=== PATIENT | male | born 1985 | race American Indian/Alaskan Native ===

== ENCOUNTER 2019-10-26 16:43 | Emergency (ER) | payer SELFPAY ==
--- NOTE | 2019-10-26 20:02 | Emergency Department Report ---
Blank Doc - Documentation Documentation: [id number] male that presents with right sided lower abd pain. exam: RLQ tenderness noted. This initial assessment/diagnostic orders/clinical plan/treatment(s) is/are subject to change based on patient's health status, clinical progression and re- assessment by fellow clinical providers in the ED. Further treatment and workup at subsequent clinical providers discretion. Patient/guardians urged not to elope from the ED as their condition may be serious if not clinically assessed and managed. Initial orders include: 1- Patient sent to [facility] for further evaluation and treatment 2- labs 3- UA
[2019-10-26 20:49] LABS: Basophils # (Auto) 0.1 K/mm3 (0.0-0.1); Eosinophils # (Auto) 0.2 K/mm3 (0.0-0.4); Hematocrit 48.3 % (35.5-45.6); Hemoglobin 15.8 gm/dl (11.8-15.2); Lymphocytes # (Auto) 3.3 K/mm3 (1.2-5.4); Lymphocytes % (Auto) 43.6 % (13.4-35.0); Mean Corpuscular HGB Conc 33 % (32-34); Mean Corpuscular Volume 87 fl (84-94); Monocytes # (Auto) 0.8 K/mm3 (0.0-0.8); Monocytes % (Auto) 11.1 % (0.0-7.3); Platelet Count 296 K/mm3 (140-440); Red Blood Count 5.52 M/mm3 (3.65-5.03); Red Cell Distribution Width 14.9 % (13.2-15.2)
[2019-10-26 20:59] LABS: Alanine Aminotransferase 21 units/L (7-56); Albumin 4.4 g/dL (3.9-5); BUN/Creatinine Ratio 11; Blood Urea Nitrogen 10 mg/dL (9-20); Calcium 9.4 mg/dL (8.4-10.2); Hemolysis Index 20
[2019-10-26 23:18] LABS: Bilirubin,Urine NEG (Negative); Blood,Urine NEG (Negative); Color,Urine Straw (Yellow); Mucus,Urine FEW /HPF; Protein,Urine <15 mg/dL mg/dL (Negative); Urobilinogen,Urine < 2.0 mg/dL (<2.0)
--- NOTE | 2019-10-27 03:09 | Emergency Department Report ---
ED Male HPI - General Chief complaint: Abdominal Pain Stated complaint: ABD/PELVIC PAIN Time Seen by Provider: 10/26/19 19:58 Source: patient, EMS Mode of arrival: Ambulatory Limitations: No Limitations - History of Present Illness Initial comments: 34-year-old -[place] male presents emergency department complaining of suprapubic pain sharp in nature with mild cramping worse with urination he reports having increased urinary urgency decreased urinary production and burning with urination. Reports no penile discharge no suspicion for STD reports no diarrhea no constipation. Ports no fever, chills, sweats. - Related Data Previous Rx's Medication Instructions Recorded Last Taken Type Phenazopyridine [Pyridium] 200 mg PO TID #10 tab 10/27/19 Unknown Rx Sulfamethoxazole/Trimethoprim 1 each PO BID #20 tablet 10/27/19 Unknown Rx [Bactrim DS TAB] ED Review of Systems ROS: Stated complaint: ABD/PELVIC PAIN Other details as noted in HPI Comment: All other systems reviewed and negative ED Past Medical Hx - Past Medical History Previous Medical History?: Yes Hx Hypertension: Yes Hx Asthma: Yes - Surgical History Past Surgical History?: Yes Additional Surgical History: Surgeries on left leg - Social History Smoking Status: Never Smoker Substance Use Type: None - Medications Home Medications: Home Medications Medication Instructions Recorded Confirmed Last Taken Type Phenazopyridine [Pyridium] 200 mg PO TID #10 tab 10/27/19 Unknown Rx Sulfamethoxazole/Trimethoprim 1 each PO BID #20 tablet 10/27/19 Unknown Rx [Bactrim DS TAB] ED Physical Exam - General Limitations: No Limitations General appearance: alert, in no apparent distress - Head Head exam: Present: atraumatic, normocephalic - Eye Eye exam: Present: normal appearance - ENT ENT exam: Present: mucous membranes moist - Neck Neck exam: Present: normal inspection - Respiratory Respiratory exam: Present: normal lung sounds bilaterally. Absent: respiratory distress - Cardiovascular Cardiovascular Exam: Present: regular rate, normal rhythm. Absent: systolic murmur, diastolic murmur, rubs, gallop - GI/Abdominal GI/Abdominal exam: Present: soft, normal bowel sounds - Rectal Rectal exam: Present: deferred - Extremities Exam Extremities exam: Present: normal inspection - Back Exam Back exam: Present: normal inspection - Neurological Exam Neurological exam: Present: alert, oriented X3 - Psychiatric Psychiatric exam: Present: normal affect, normal mood - Skin Skin exam: Present: warm, dry, intact, normal color. Absent: rash ED Course Vital Signs 10/26/19 10/27/19 17:49 01:52 Temperature 97.9 F 98.1 F Pulse Rate 96 H 88 Respiratory 18 18 Rate Blood Pressure 146/81 147/94 O2 Sat by Pulse 98 98 Oximetry ED Medical Decision Making - Lab Data Result diagrams: 10/26/19 20:07 10/26/19 20:07 - Medical Decision Making This patient presents with abdominal pain of unclear etiology most likely urinary tract infection. Their evaluation has not identified a emergent etiology for the abdominal pain. Specifically, given the very benign exam, normal laboratory studies, and lack of significant risk factors, I have a very low suspicion for appendicitis, ischemic bowel, bowel perforation, or any other life threatening disease. I have discussed with the patient the level of uncertainty with undifferentiated abdominal pain and clearly explained the need to follow-up as noted on the discharge instructions, or return to the Emergency Department immediately if the pain worsens, develops fever, persistent and uncontrollable vomiting, or for any new symptoms or concerns. I discussed with the patient that this presentation today for abdominal pain could represent a significant risk for an acute abdominal process. Although the tests in the ED were essentially n ormal, there is still a possibility of a process such as appendicitis, diverticulitis, cholecystitis, ulcer, early bowel obstruction, mesenteric ischemia, kidney stone, or even kidney infection which could subsequently cause disability or . The patient understands that they must return within 24 hours for a recheck or see their physician within 24 hours for re-exam due to the possibility of significant surgical or medical process. Critical care attestation.: If time is entered above; I have spent that time in minutes in the direct care of this critically ill patient, excluding procedure time. ED Disposition Clinical Impression: UTI (urinary tract infection) Disposition: -01 TO HOME OR SELFCARE Is pt being admited?: No Does the pt Need Aspirin: No Condition: Stable Instructions: Phenazopyridine (By mouth), Urinary Tract Infection in Men (ED), Dysuria (ED) Prescriptions: Sulfamethoxazole/Trimethoprim [Bactrim DS TAB] 1 each PO BID #20 tablet Phenazopyridine [Pyridium] 200 mg PO TID #10 tab Referrals: PRIMARY CARE, [Primary Care Provider] - 3-5 Days [facility] [Provider Group] - 3-5 Days
[2019-10-27 06:32] VITALS: BP 132/65
== END 2019-10-27 03:35 | disposition home or self-care (01) ==
LOC: ED 16:43
DX: N39.0 Urinary tract infection, site not specified (principal); I10 Essential (primary) hypertension; J45.909 Unspecified asthma, uncomplicated; Z98.890 Other specified postprocedural states; Z79.899 Other long term (current) drug therapy
CPT/HCPCS: 36415; 80053; 81001; 83690; 85025; 87086

== ENCOUNTER 2021-03-03 18:34 | Emergency (ER) | payer SELFPAY ==
[2021-03-03] MEDS ORDERED: HYDROcodone/ACETAMINOPHEN 5-325 MG TAB PO ONE (19:37)
--- NOTE | 2021-03-03 19:40 | Emergency Department Report ---
ED General Adult HPI - General Chief complaint: Pain General Stated complaint: HIP PAIN Time Seen by Provider: 03/03/21 18:47 Source: patient Mode of arrival: Ambulatory Limitations: No Limitations - History of Present Illness Initial comments: Patient is a 35-year-old male presents emergency room with complaints of right leg swelling that exacerbated approximately 2 to 3 weeks ago. He has associated right hip pain and lower back pain. He denies any fall or injury. He states he has a history of a right hip replacement when he was 12 years old. 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 He states he has seen orthopedic doctors and went to physical therapy. He denies any numbness or weakness. He is able to ambulate. He denies any redness, rashes, increased warmth, fever, vomiting. No allergies to medications. - Related Data Previous Rx's Medication Instructions Recorded Last Taken Type Phenazopyridine [Pyridium] 200 mg PO TID #10 tab 10/27/19 Unknown Rx Sulfamethoxazole/Trimethoprim 1 each PO BID #20 tablet 10/27/19 Unknown Rx [Bactrim DS TAB] Gabapentin 100 mg PO Q8HR #21 capsule 03/03/21 Unknown Rx Meloxicam [Mobic] 7.5 mg PO QDAY PRN #14 tablet 03/03/21 Unknown Rx methOCARBAMOL [Robaxin TAB] 500 mg PO BID PRN #14 tab 03/03/21 Unknown Rx Allergies Allergy/AdvReac Type Severity Reaction Status Date / Time No Known Allergies Allergy Unverified 10/27/19 03:32 ED Review of Systems ROS: Stated complaint: HIP PAIN Other details as noted in HPI Comment: All other systems reviewed and negative ED Past Medical Hx - Past Medical History Hx Hypertension: Yes Hx Asthma: Yes - Surgical History Additional Surgical History: Surgeries on left leg - Social History Smoking Status: Never Smoker Substance Use Type: None - Medications Home Medications: Home Medications Medication Instructions Recorded Confirmed Last Taken Type Phenazopyridine [Pyridium] 200 mg PO TID #10 tab 10/27/19 Unknown Rx Sulfamethoxazole/Trimethoprim 1 each PO BID #20 tablet 10/27/19 Unknown Rx [Bactrim DS TAB] Gabapentin 100 mg PO Q8HR #21 capsule 03/03/21 Unknown Rx Meloxicam [Mobic] 7.5 mg PO QDAY PRN #14 tablet 03/03/21 Unknown Rx methOCARBAMOL [Robaxin TAB] 500 mg PO BID PRN #14 tab 03/03/21 Unknown Rx ED Physical Exam - General Limitations: No Limitations General appearance: alert, in no apparent distress - Head Head exam: Present: atraumatic, normocephalic - Eye Eye exam: Present: normal appearance - ENT ENT exam: Present: mucous membranes moist - Neck Neck exam: Present: normal inspection, full ROM. Absent: tenderness, menin gismus - Respiratory Respiratory exam: Present: normal lung sounds bilaterally. Absent: respiratory distress, wheezes, rales, rhonchi, stridor, chest wall tenderness, accessory muscle use, decreased breath sounds, prolonged expiratory - Cardiovascular Cardiovascular Exam: Present: normal rhythm, tachycardia - Extremities Exam Extremities exam: Present: other (non pitting edema to the right lower extremity, FROM of the RLE, pain with full flexion of the hip, no skin changes, neurovascularly intact with strong distal pulses) - Back Exam Back exam: Present: normal inspection, full ROM, paraspinal tenderness (lumbar), vertebral tenderness (lumbar) - Neurological Exam Neurological exam: Present: alert, oriented X3, CN II-XII intact, normal gait. Absent: motor sensory deficit - Psychiatric Psychiatric exam: Present: normal affect, normal mood - Skin Skin exam: Present: warm, dry, intact ED Course Vital Signs 03/03/21 03/03/21 03/03/21 18:41 20:22 20:39 Temperature 98.7 F Pulse Rate 125 H 96 H Respiratory 20 18 14 Rate Blood Pressure 154/75 Blood Pressure 153/87 [Left] O2 Sat by Pulse 100 Oximetry ED Medical Decision Making - Lab Data Result diagrams: 03/03/21 19:30 03/03/21 19:30 Lab Results 03/03/21 03/03/21 Range/Units 19:30 19:30 WBC 6.0 (4.5-11.0) K/mm3 RBC 5.79 H (3.65-5.03) M/mm3 Hgb 15.8 H (11.8-15.2) gm/dl Hct 49.9 H (35.5-45.6) % MCV 86 (84-94) fl MCH 27 L (28-32) pg MCHC 32 (32-34) % RDW 14.9 (13.2-15.2) % Plt Count 321 (140-440) K/mm3 Lymph % (Auto) 9.8 L (13.4-35.0) % [place] % (Auto) 1.4 (0.0-7.3) % Eos % (Auto) 0.1 (0.0-4.3) % Baso % (Auto) 0.4 (0.0-1.8) % Lymph # (Auto) 0.6 L (1.2-5.4) K/mm3 [place] # (Auto) 0.1 (0.0-0.8) K/mm3 Eos # (Auto) 0.0 (0.0-0.4) K/mm3 Baso # (Auto) 0.0 (0.0-0.1) K/mm3 Seg Neutrophils % 88.3 H (40.0-70.0) % Seg Neutrophils # 5.3 (1.8-7.7) K/mm3 Sodium 145 (137-145) mmol/L Potassium 4.2 (3.6-5.0) mmol/L Chloride 108.8 H (98-107) mmol/L Carbon Dioxide 21 L (22-30) mmol/L Anion Gap 19 mmol/L BUN 16 (9-20) mg/dL Creatinine 1.0 (0.8-1.3) mg/dL Estimated GFR > 60 ml/min BUN/Creatinine Ratio 16 % Glucose 141 H (75-100) mg/dL Calcium 10.3 H (8.4-10.2) mg/dL Total Bilirubin 0.20 (0.1-1.2) mg/dL AST 19 (5-40) units/L ALT 24 (7-56) units/L Alkaline Phosphatase 90 (35-129) units/L NT-Pro-B Natriuret Pep 22.11 (0-450) pg/mL Total Protein 7.3 (6.3-8.2) g/dL Albumin 4.6 (3.9-5) g/dL Albumin/Globulin Ratio 1.7 % - Radiology Data Radiology results: report reviewed Ordering Physician: ROXANN HILTON Date of Service: 03/03/21 Procedure(s): XR spine lumbosacral 2-3V Accession Number(s): [id number] cc: ROXANN HILTON Fluoro Time In Minutes: LUMBAR SPINE 2 VIEWS INDICATION / CLINICAL INFORMATION: low back pain. COMPARISON: None available. FINDINGS: VERTEBRAE: No acute fracture. No significant malalignment. DISC SPACES / FACET JOINTS:No significant abnormality. PARASPINAL SOFT TISSUES:No significant abnormality. ADDITIONAL FINDINGS: None. Signer Name: Erickson Meléndez MD Signed: 03/03/2021 7:47 PM Workstation Name: [id number] Transcribed By: SB Dictated By: ERICKSON MELÉNDEZ MD Electronically Authenticated By: ERICKSON MELÉNDEZ MD Signed Date/Time: 03/03/211946 DD/ 46 TD/TT: Ordering Physician: ROXANN HILTON Date of Service: 03/03/21 Procedure(s): XR hip 2-3V RT Accession Number(s): [id number] cc: ROXANN HILTON Fluoro Time In Minutes: RIGHT HIP 3 VIEW(S) INDICATION / CLINICAL INFORMATION: right hip pain COMPARISON: None available. FINDINGS: BONES / JOINT(S): Remote, healed fracture status post surgical fixation of the right hip. Mild right hip osteoarthrosis. No acute osseous abnormality. No evidence of hardware failure. Left hip is normal. SOFT TISSUES: No significant abnormality. ADDITIONAL FINDINGS: None. Signer Name: Erickson Meléndez MD Signed: 03/03/2021 7:47 PM Workstation Name: [id number] Transcribed By: Dictated By: ERICKSON MELÉNDEZ MD Electronically Authenticated By: ERICKSON MELÉNDEZ MD Signed Date/Time: 03/03/211946 DD/ 45 TD/TT: Ordering Physician: ROXANN HILTON Date of Service: 03/03/21 Procedure(s): VL venous duplex LE RT Accession Number(s): [id number] cc: ROXANN HILTON DUPLEX DOPPLER LOWER EXTREMITY VEINS, RIGHT INDICATION / CLINICAL INFORMATION: right leg swelling and pain. TECHNIQUE: Duplex doppler imaging was performed through the veins of the right lower extremity using venous compression and other maneuvers. COMPARISON: None available. FINDINGS: RIGHT COMMON FEMORAL VEIN: Negative. RIGHT FEMORAL VEIN: Negative. RIGHT POPLITEAL VEIN: Negative. RIGHT CALF VEINS: Negative. ADDITIONAL FINDINGS: None. IMPRESSION: 1. No sonographic evidence for DVT in the right lower extremity. Signer Name: Erickson Meléndez MD Signed: 03/03/2021 8:22 PM Workstation Name: [id number] Transcribed By: ELISABETH Dictated By: ERICKSON MELÉNDEZ MD Electronically Authenticated By: ERICKSON MELÉNDEZ MD Signed Date/Time: 03/03/212021 DD/ 20 TD/TT: - Medical Decision Making Patient is a 35-year-old male presents emergency room with complaints of right leg swelling that exacerbated approximately 2 to 3 weeks ago. He has associated right hip pain and lower back pain. He denies any fall or injury. He states he has a history of a right hip replacement when he was 12 years old. 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 He states he has seen orthopedic doctors and went to physical therapy. He denies any numbness or weakness. He is able to ambulate. He denies any redness, rashes, increased warmth, fever, vomiting. No allergies to medications. Initial vitals with tachycardia which improved upon repeat. On exam:non pitting edema to the right lower extremity, FROM of the RLE, pain with full flexion of the hip, no skin changes, neurovascularly intact with strong distal pulses, midline lumbar and paraspinal lumbar tenderness palpation, no step-offs, no deformities, no focal neuro deficits, patient is ambulatory. X-ray lumbar spine VERTEBRAE: No acute fracture. No significant malalignment. DISC SPACES / FACET JOINTS:No significant abnormality. PARASPINAL SOFT TISSUES:No significant abnormality. ADDITIONAL FINDINGS: None. X-ray right hip BONES / JOINT(S): Remote, healed fracture status post surgical fixation of the right hip. Mild right hip osteoa rthrosis. No acute osseous abnormality. No evidence of hardware failure. Left hip is normal. SOFT TISSUES: No significant abnormality. ADDITIONAL FINDINGS: None. Doppler ultrasound right lower extremity 1. No sonographic evidence for DVT in the right lower extremity. Labs are stable. Patient has no signs of infection, cellulitis, or septic joint. He has 2+ distal pulses, no signs of acute arterial occlusion. Patient will be referred to neurosurgery and vascular surgery. Patient states that he already sees an orthopedic at [facility]. Patient given prescription for medications. Advised patient Please take medication as prescribed. Follow-up with your primary care doctor. Follow-up with a vascular doctor. Follow-up with a neurosurgeon. Eat a low-sodium diet. Elevate your legs. Please wear compression stockings when you're on your feet. Return to emergency room for any new or symptoms. Critical care attestation.: If time is entered above; I have spent that time in minutes in the direct care of this critically ill patient, excluding procedure time. ED Disposition Clinical Impression: Right hip pain, Arthritis of right hip, Right leg swelling Low back pain Qualifiers: Chronicity: acute Back pain laterality: bilateral Sciatica presence: without sciatica Qualified Code(s): M54.50 - Low back pain, unspecified Disposition: HOME / SELF CARE / HOMELESS Is pt being admited?: No Does the pt Need Aspirin: No Condition: Stable Instructions: Acute Back Pain, Adult, Arthritis Additional Instructions: Please take medication as prescribed. Follow-up with your primary care doctor. Follow-up with a vascular doctor. Follow-up with a neurosurgeon. Eat a low- sodium diet. Elevate your legs. Please wear compression stockings when you're on your feet. Return to emergency room for any new or symptoms. Prescriptions: Gabapentin 100 mg PO Q8HR #21 capsule Meloxicam [Mobic] 7.5 mg PO QDAY PRN #14 tablet PRN Reason: pain methOCARBAMOL [Robaxin TAB] 500 mg PO BID PRN #14 tab PRN Reason: muscle spasm/pain Referrals: ROSEMARIE MASON MD [Primary Care Provider] - 3-[address] [facility] [Provider Group] - 3-5 Days RANDY AMBRIZ II, MD [Staff Physician] - 3-5 Days Time of Disposition: 20:32 Print Language: INDONESIAN
[2021-03-03 19:49] LABS: Basophils % (Auto) 0.4 % (0.0-1.8); Eosinophils % (Auto) 0.1 % (0.0-4.3); Hematocrit 49.9 % (35.5-45.6); Hemoglobin 15.8 gm/dl (11.8-15.2); Lymphocytes # (Auto) 0.6 K/mm3 (1.2-5.4); Lymphocytes % (Auto) 9.8 % (13.4-35.0); Mean Corpuscular HGB Conc 32 % (32-34); Mean Corpuscular Volume 86 fl (84-94); Monocytes # (Auto) 0.1 K/mm3 (0.0-0.8); Monocytes % (Auto) 1.4 % (0.0-7.3); Platelet Count 321 K/mm3 (140-440); Red Blood Count 5.79 M/mm3 (3.65-5.03); Red Cell Distribution Width 14.9 % (13.2-15.2)
--- NOTE | 2021-03-03 19:52 | XRay Report ---
RIGHT HIP 3 VIEW(S) INDICATION / CLINICAL INFORMATION: right hip pain COMPARISON: None available. FINDINGS: BONES / JOINT(S): Remote, healed fracture status post surgical fixation of the right hip. Mild right hip osteoarthrosis. No acute osseous abnormality. No evidence of hardware failure. Left hip is normal . SOFT TISSUES: No significant abnormality. ADDITIONAL FINDINGS: None. Signer Name: Erickson Meléndez MD Signed: 03/03/2021 7:47 PM Workstation Name: [id number]
--- NOTE | 2021-03-03 19:52 | XRay Report ---
LUMBAR SPINE 2 VIEWS INDICATION / CLINICAL INFORMATION: low back pain. COMPARISON: None available. FINDINGS: VERTEBRAE: No acute fracture. No significant malalignment. DISC SPACES / FACET JOINTS:No significant abnormality. PARASPINAL SOFT TISSUES:No significant abnormality. ADDITIONAL FINDINGS: None. Signer Name: Erickson Meléndez MD Signed: 03/03/2021 7:47 PM Workstation Name: [id number]
[2021-03-03 20:13] LABS: Alanine Aminotransferase 24 units/L (7-56); Albumin 4.6 g/dL (3.9-5); BUN/Creatinine Ratio 16; Blood Urea Nitrogen 16 mg/dL (9-20); Calcium 10.3 mg/dL (8.4-10.2); Hemolysis Index 19
--- NOTE | 2021-03-03 20:26 | Vascular Lab Report ---
DUPLEX DOPPLER LOWER EXTREMITY VEINS, RIGHT INDICATION / CLINICAL INFORMATION: right leg swelling and pain. TECHNIQUE: Duplex doppler imaging was performed through the veins of the right lower extremity using venous compression and other maneuvers. COMPARISON: None available. FINDINGS: RIGHT COMMON FEMORAL VEIN: Negative. RIGHT FEMORAL VEIN: Negative. RIGHT POPLITEAL VEIN: Negative. RIGHT CALF VEINS: Negative. ADDITIONAL FINDINGS: None. IMPRESSION: 1. No sonographic evidence for DVT in the right lower extremity. Signer Name: Erickson Meléndez MD Signed: 03/03/2021 8:22 PM Workstation Name: [id number]
[2021-03-03 20:41] VITALS: BP 153/87
== END 2021-03-03 20:41 | disposition home or self-care (01) ==
LOC: ED 18:34
DX: M25.551 Pain in right hip (principal); M16.11 Unilateral primary osteoarthritis, right hip; R22.41 Localized swelling, mass and lump, right lower limb; M54.50 Low back pain, unspecified; I10 Essential (primary) hypertension; J45.909 Unspecified asthma, uncomplicated
CPT/HCPCS: 36415; 72100; 80053; 83880; 85025; 99284

== ENCOUNTER 2021-11-27 23:35 | Emergency (ER) | payer BC ==
[2021-11-28 05:07] VITALS: BP 146/90
[2021-11-28] MEDS ORDERED: IBUPROFEN 600 MG TAB PO ONE (06:10)
[2021-11-28] MEDS ORDERED: ACETAMINOPHEN 500 MG TAB PO ONE (06:10)
--- NOTE | 2021-11-28 06:15 | Emergency Department Report ---
ED Extremity Problem HPI - General Chief complaint: Extremity Problem,Nontraumatic Stated complaint: PAIN IN LEGS Source: patient Mode of arrival: Ambulatory Limitations: No Limitations - History of Present Illness Initial comments: Patient is a 36-year-old -[place] male with a history of asthma, hypertension and chronic low back pain who presents to the ED with complaint of acute exacerbation of his chronic low back pain, right ankle pain and swelling for the last 1 week. Patient states that he has been taking [id number] medication with no relief. Patient states that in the last 2 days the pain and the swelling on the right ankle worsened. Patient denies dizziness, syncope, fall, heavy lifting, chest pain, shortness of breath, nausea and vomiting, numb ness and tingling or weakness of lower extremities bilaterally. MD Complaint: extremity pain (right ankle pain and swelling), joint swelling (right ankle swelling and pain), joint paint, other (lower back pain) -: Gradual, week(s) (1) Location: right, lower extremity (right ankle) History of Same: Yes -: Yes arthralgia Radiation: distal Severity scale (0 -10): 8 Quality: aching, sharp Consistency: constant Improves with: nothing Worsens with: weight bearing, walking, exertion, palpation Associated Symptoms: denies other symptoms, arthralgias. denies: chest pain, shortness of breath, fever, myalgias, rash - Related Data Previous Rx's Medication Instructions Recorded Last Taken Type Phenazopyridine [Pyridium] 200 mg PO TID #10 tab 10/27/19 Unknown Rx Sulfamethoxazole/Trimethoprim 1 each PO BID #20 tablet 10/27/19 Unknown Rx [Bactrim DS TAB] Gabapentin 100 mg PO Q8HR #21 capsule 03/03/21 Unknown Rx Meloxicam [Mobic] 7.5 mg PO QDAY PRN #14 tablet 03/03/21 Unknown Rx methOCARBAMOL [Robaxin TAB] 500 mg PO BID PRN #14 tab 03/03/21 Unknown Rx Ibuprofen [Motrin] 800 mg PO Q8HR PRN #30 tablet 11/28/21 Unknown Rx predniSONE [Deltasone] 40 mg PO QDAY #10 tab 11/28/21 Unknown Rx traMADoL [Ultram] 50 mg PO Q6HR PRN #12 tablet 11/28/21 Unknown Rx Allergies Allergy/AdvReac Type Severity Reaction Status Date / Time No Known Allergies Allergy Unverified 10/27/19 03:32 ED Review of Systems ROS: Stated complaint: PAIN IN LEGS Other details as noted in HPI Constitutional: denies: chills, fever Eyes: denies: eye pain, eye discharge, vision change ENT: denies: ear pain, throat pain Respiratory: denies: cough, shortness of breath, wheezing Cardiovascular: denies: chest pain, palpitations Endocrine: no symptoms reported Gastrointestinal: denies: abdominal pain, nausea, vomiting, diarrhea Genitourinary: denies: urgency, dysuria Musculoskeletal: back pain (lower), joint swelling (right ankle), arthralgia (right ankle ), myalgia Skin: denies: rash, lesions Neurological: denies: headache, weakness, paresthesias Psychiatric: denies: anxiety, depression Hematological/Lymphatic: denies: easy bleeding, easy bruising ED Past Medical Hx - Past Medical History Hx Hypertension: Yes Hx Asthma: Yes - Surgical History Additional Surgical History: Surgeries on left leg - Social History Smoking Status: Never Smoker Substance Use Type: None - Medications Home Medications: Home Medications Medication Instructions Recorded Confirmed Last Taken Type Phenazopyridine [Pyridium] 200 mg PO TID #10 tab 10/27/19 Unknown Rx Sulfamethoxazole/Trimethoprim 1 each PO BID #20 tablet 10/27/19 Unknown Rx [Bactrim DS TAB] Gabapentin 100 mg PO Q8HR #21 capsule 03/03/21 Unknown Rx Meloxicam [Mobic] 7.5 mg PO QDAY PRN #14 tablet 03/03/21 Unknown Rx methOCARBAMOL [Robaxin TAB] 500 mg PO BID PRN #14 tab 03/03/21 Unknown Rx Ibuprofen [Motrin] 800 mg PO Q8HR PRN #30 tablet 11/28/21 Unknown Rx predniSONE [Deltasone] 40 mg PO QDAY #10 tab 11/28/21 Unknown Rx traMADoL [Ultram] 50 mg PO Q6HR PRN #12 tablet 11/28/21 Unknown Rx ED Physical Exam - General Limitations: No Limitations General appearance: alert, in no apparent distress - Head Head exam: Present: atraumatic, normocephalic, normal inspection - Eye Eye exam: Present: normal appearance, PERRL, EOMI Pupils: Present: normal accommodation - ENT ENT exam: Present: normal exam, normal orophraynx, mucous membranes moist, TM's normal bilaterally, normal external ear exam - Neck Neck exam: Present: normal inspection, full ROM. Absent: tenderness - Respiratory Respiratory exam: Present: normal lung sounds bilaterally. Absent: respiratory distress, wheezes, rales, rhonchi, chest wall tenderness, accessory muscle use, decreased breath sounds, prolonged expiratory - Cardiovascular Cardiovascular Exam: Present: regular rate, normal rhythm, normal heart sounds. Absent: systolic murmur, diastolic murmur, rubs, gallop - GI/Abdominal GI/Abdominal exam: Present: soft, normal bowel sounds. Absent: tenderness, guarding, rebound, hyperactive bowel sounds, hypoactive bowel sounds - Extremities Exam Extremities exam: Present: normal inspection, full ROM, tenderness (Palpable ri ght ankle tenderness with mild swelling), normal capillary refill, joint swelling (Mild swelling of right ankle). Absent: pedal edema, calf tenderness - Back Exam Back exam: Present: normal inspection, full ROM. Absent: tenderness, CVA tenderness (R), CVA tenderness (L), muscle spasm, paraspinal tenderness, vertebral tenderness - Neurological Exam Neurological exam: Present: alert, oriented X3, CN II-XII intact, normal gait, reflexes normal - Psychiatric Psychiatric exam: Present: normal affect, normal mood - Skin Skin exam: Present: warm, dry, intact, normal color. Absent: rash ED Course Vital Signs 11/28/21 05:06 Temperature 98.3 F Pulse Rate 81 Respiratory 18 Rate Blood Pressure 146/90 [Left] O2 Sat by Pulse 99 Oximetry ED Medical Decision Making - Medical Decision Making This is a 36-year-old -[place] male with a history of asthma, hypertension and chronic low back pain who presents to the ED with complaint of acute exacerbation of his chronic low back pain, right ankle pain and swelling for the last 1 week. Patient states that he has been taking [id number] medication with no relief. Patient states that in the last 2 days the pain and the swelling on the right ankle worsened. In the ED, patient is alert and oriented x3 and is not in any distress. Patient was treated for pain in the ED. Patient was discharged home on pain medications and advised to follow-up with his primary care physician in 7 to 10 days for reevaluation or return to the ED immediately if symptoms get worse. - Differential Diagnosis Ankle tendinitis; muscle strain; muscle spasm; chronic pain Critical care attestation.: If time is entered above; I have spent that time in minutes in the direct care of this critically ill patient, excluding procedure time. ED Disposition Clinical Impression: Tendinitis of right ankle, Chronic bilateral low back pain without sciatica Severe sprain of right ankle Qualifiers: Encounter type: initial encounter Qualified Code(s): S93.401A - Sprain of unspecified ligament of right ankle, initial encounter Disposition: HOME / SELF CARE / HOMELESS Is pt being admited?: No Does the pt Need Aspirin: No Condition: Stable Instructions: Ankle Sprain, [id number], Chronic Back Pain, [id number] Additional Instructions: Take medication with food, drink plenty of fluids, follow-up with your primary care physician in 7 to 10 days for reevaluation. Return to the ED immediately if symptoms get worse. Prescriptions: predniSONE [Deltasone] 40 mg PO QDAY #10 tab Ibuprofen [Motrin] 800 mg PO Q8HR PRN #30 tablet PRN Reason: Pain , Severe (7-10) traMADoL [Ultram] 50 mg PO Q6HR PRN #12 tablet PRN Reason: Pain Referrals: [facility] [Provider Group] - 7-10 days Forms: Work/School Release Form(ED) Time of Disposition: 06:17 Print Language: OCCITAN
== END 2021-11-28 17:30 | disposition home or self-care (01) ==
LOC: ED 23:35
DX: S93.402A Sprain of unspecified ligament of left ankle, initial encounter (principal); M77.52 Other enthesopathy of left foot and ankle; M54.50 Low back pain, unspecified; I10 Essential (primary) hypertension; J45.909 Unspecified asthma, uncomplicated; X58.XXXA Exposure to other specified factors, initial encounter; Y93.89 Activity, other specified; Y92.89 Other specified places as the place of occurrence of the external cause; Y99.8 Other external cause status
CPT/HCPCS: 99282